=== PATIENT | male | born 1980 | race Caucasian/White ===

== ENCOUNTER 2023-09-12 19:36 | Emergency (ER) | payer MEDICAID ==
[~2023-09-12] VITALS: Ht 172.7 cm; Wt 97.5 kg
[2023-09-12] MEDS ORDERED: IBUP-1955 PO (19:59)
[2023-09-12] MEDS ORDERED: OMEP20TA5 PO (19:59)
[2023-09-12] MEDS ORDERED: ALBU8.5H8 IH (19:59)
[2023-09-12 21:11] LABS: CALCIUM 8.8 mg/dL (8.5-10.1); CREATININE 0.8 mg/dL (0.6-1.3); POTASSIUM 4.1 mmol/L (3.5-5.1)
[2023-09-12 21:25] LABS: ALBUMIN 3.7 g/dL (3.4-5.0); BILIRUBIN,TOTAL 0.5 mg/dL (0.2-1.0); TOTAL PROTEIN, SERUM 7.5 g/dL (6.4-8.2)
[2023-09-12 21:27] LABS: BASOPHILS % (AUTO) 0.1 % (0.0-2.0); DIFFERENTIAL COMMENT 0; EOSINOPHILS # (AUTO) 0.3 K/uL (0.0-0.7); EOSINOPHILS % (AUTO) 2.9 % (0.0-7.0); HEMATOCRIT 31.9 % (36.7-47.1); HEMOGLOBIN 9.5 g/dL (12.5-16.3); LYMPHOCYTES % (AUTO) 17.5 % (20.5-51.5); MEAN CORPUSCULAR HEMOGLOBIN 18.6 uug (23.8-33.4); MEAN CORPUSCULAR HGB CONC 30 g/dL (32.5-36.3); MEAN CORPUSCULAR VOLUME 62.5 fL (73.0-96.2); MONOCYTES # (AUTO) 1.1 K/uL (0.1-1.30); MONOCYTES % (AUTO) 9.5 % (0.0-11.0); NEUTROPHILS # (AUTO) 8.2 K/uL (1.8-8.9); PLATELET COUNT (AUTO) 462 K/uL (152-348); RED BLOOD CELL COUNT(AUTO) 5.09 MIL/uL (4.06-5.63); RED CELL DISTRIBUTION WIDTH 19.1 % (12.1-16.2); WHITE BLOOD COUNT (AUTO) 11.7 K/uL (3.6-10.2)
[2023-09-12 21:32] LABS: LACTIC ACID 2.5 mmol/L (0.4-2.0)
[2023-09-12] MEDS: IV NS 1000 ML 1,000 ML IV ONE (23:10)
[2023-09-12] MEDS: CEFTRIAXONE 1 G in IV DEXTROSE 5% 50 ML IV ONE (23:10)
[2023-09-12] MEDS ORDERED: CEFTRIAXONE /D5W 50ML IVPB **ER PYXIS IV ONE (23:13)
[2023-09-12] MEDS ORDERED: ALBU18HF2 INH (23:42)
[2023-09-12] MEDS ORDERED: AZIT250T PO (23:42)
[2023-09-12] MEDS ORDERED: BENZ-13 PO (23:42)
[2023-09-13 00:39] VITALS: BP 120/82; O2SAT 96
== END 2023-09-13 00:25 | disposition home or self-care (01) ==
LOC: ER 19:38
DX: J18.9 Pneumonia, unspecified organism (principal); K21.9 Gastro-esophageal reflux disease without esophagitis; Z79.899 Other long term (current) drug therapy; Z60.2 Problems related to living alone
CPT/HCPCS: 36415; 71045; 71250; 83605; 84484; 85025; 87040; A4606; A4663; J0696; J7040